=== PATIENT | female | born 1965 | race Caucasian/White ===

== ENCOUNTER 2020-07-17 10:45 | Outpatient (CLI) | payer OTHER ==
[2020-07-17 16:05] LABS: THYROID STIMULATING HORMONE 6.15 uIU/mL (0.34-5.60)
[2020-07-17 16:07] LABS: FREE T4 (FREE THYROXINE) 0.66 ng/dL (0.58-1.64)
== END 2020-07-17 10:46 | disposition home or self-care (01) ==
LOC: LAB.S 10:45
PROVIDERS: ATTEND Registered Nurse
DX: R79.89 Other specified abnormal findings of blood chemistry (principal); E03.9 Hypothyroidism, unspecified
CPT/HCPCS: 36415; 82565; 84439; 84443

== ENCOUNTER 2020-09-22 13:47 | Outpatient (CLI) | payer OTHER ==
[2020-09-22 20:29] LABS: THYROID STIMULATING HORMONE 0.89 uIU/mL (0.34-5.60)
[2020-09-22 20:31] LABS: FREE T4 (FREE THYROXINE) 0.71 ng/dL (0.58-1.64)
== END 2020-09-22 13:48 | disposition home or self-care (01) ==
LOC: LAB.S 13:47
PROVIDERS: ATTEND Registered Nurse
DX: E03.9 Hypothyroidism, unspecified (principal)
CPT/HCPCS: 36415; 84439; 84443

== ENCOUNTER 2020-12-29 16:01 | Outpatient (CLI) | payer OTHER ==
[2020-12-29 20:14] LABS: THYROID STIMULATING HORMONE 0.9 uIU/mL (0.34-5.60)
[2020-12-29 20:16] LABS: FREE T3 3.69 pg/mL (2.5-3.9); FREE T4 (FREE THYROXINE) 0.75 ng/dL (0.58-1.64)
== END 2020-12-29 16:02 | disposition home or self-care (01) ==
LOC: LAB.S 16:01
PROVIDERS: ATTEND Registered Nurse
DX: E03.9 Hypothyroidism, unspecified (principal)
CPT/HCPCS: 36415; 84439; 84443; 84481

== ENCOUNTER 2021-07-27 13:56 | Outpatient (CLI) | payer OTHER ==
[2021-07-27 20:12] LABS: BASOPHILS % (AUTO) 0.8 %; EOSINOPHILS # (AUTO) 0.1 10^3/uL (0.0-0.7); EOSINOPHILS % (AUTO) 1.2 %; HCT - HEMATOCRIT 40.2 % (37.0-47.0); HGB - HEMOGLOBIN 12.5 g/dL (12.0-16.0); LYMPHOCYTES # (AUTO) 1.4 10^3/uL (1.5-3.5); LYMPHOCYTES % (AUTO) 28.7 %; MEAN CORPUSCULAR HEMOGLOBIN 27.8 pg (27.0-31.0); MEAN CORPUSCULAR HGB CONC 31.1 g/dL (32.0-36.0); MEAN CORPUSCULAR VOLUME 89.5 fL (81.0-99.0); MEAN PLATELET VOLUME 10.6 fL (7.9-10.8); MONOCYTES # (AUTO) 0.3 10^3/uL (0.0-1.0); MONOCYTES % (AUTO) 5.8 %; NEUTROPHILS # (AUTO) 3.1 10^3/uL (1.5-6.6); NEUTROPHILS % (AUTO) 63.5 %; PLT - PLATELET COUNT 190 10^3/uL (130-450); RED BLOOD COUNT 4.49 10^6/uL (4.20-5.40); RED CELL DISTRIBUTION WIDTH 14.4 % (12.0-15.0); WHITE BLOOD COUNT 4.8 x10^3/uL (4.8-10.8)
[2021-07-27 20:24] LABS: ALBUMIN 4.2 g/dL (3.2-5.5); ALBUMIN/GLOBULIN RATIO 1.5 (1.0-2.2); BILIRUBIN,TOTAL 0.6 mg/dL (0.2-1.0); CALCIUM 9.4 mg/dL (8.5-10.3); CREATININE 1.2 mg/dL (0.4-1.0); CRP - C-REACTIVE PROTEIN 1.1 mg/dL (0-1.0); POTASSIUM 4.2 mmol/L (3.5-5.0)
[2021-07-27 20:39] LABS: THYROID STIMULATING HORMONE 5.06 uIU/mL (0.34-5.60)
[2021-07-27 20:41] LABS: FREE T3 3.55 pg/mL (2.5-3.9); FREE T4 (FREE THYROXINE) 0.54 ng/dL (0.58-1.64)
== END 2021-07-27 13:57 | disposition home or self-care (01) ==
LOC: LAB.S 13:56
PROVIDERS: ATTEND Registered Nurse
DX: Z12.11 Encounter for screening for malignant neoplasm of colon (principal); M25.50 Pain in unspecified joint; E03.9 Hypothyroidism, unspecified; N18.31 Chronic kidney disease, stage 3a
CPT/HCPCS: 36415; 80053; 84439; 84443; 84481; 85025; 85651; 86140

== ENCOUNTER 2021-11-16 14:10 | Outpatient (CLI) | payer OTHER ==
[2021-11-16 21:31] LABS: THYROID STIMULATING HORMONE 1.1 uIU/mL (0.34-5.60)
[2021-11-16 21:33] LABS: FREE T4 (FREE THYROXINE) 0.72 ng/dL (0.58-1.64)
== END 2021-11-16 14:11 | disposition home or self-care (01) ==
LOC: LAB.S 14:10
PROVIDERS: ATTEND Registered Nurse
DX: E03.9 Hypothyroidism, unspecified (principal)
CPT/HCPCS: 36415; 84439; 84443

== ENCOUNTER 2021-12-14 12:58 | Outpatient (CLI) | payer OTHER ==
--- NOTE | 2021-12-15 09:36 | Mammography Report ---
BILATERAL DIGITAL SCREENING MAMMOGRAM 3D/2D WITH EXAGGERATED CC: 12/14/2021 CLINICAL: Routine screening. Comparison is made to exams dated: 01/29/2010 mammogram and 10/24/2008 mammogram - [facility]. There are scattered fibroglandular elements in both breasts. No significant masses, calcifications, or other findings are seen in either breast. There has been no significant interval change. IMPRESSION: NEGATIVE There is no mammographic evidence of malignancy. A 1 year screening mammogram is recommended. This exam was interpreted at Station ID: [id number]. NOTE: For mammograms, a report in lay terms will be sent to the patient. Approximately 15% of breast malignancies will not be visualized mammographically. In the management of a palpable breast mass, a negative mammogram must not discourage biopsy of a clinically suspicious lesion. Electronically Signed By: Francois Pringle M.D., jr/geovanny:12/14/2021 13:52:24 ACR BI-RADS Category 1: Negative 3341F PARENCHYMAL PATTERN: (A) - The breast(s) demonstrate(s) scattered fibroglandular densities. BI-RADS CATEGORY: (1) - 1 RECOMMENDATION: (ANNUAL) - Recommend routine annual screening mammography. [id number] 1 year screening LATERALITY: (B)
== END 2021-12-14 12:59 | disposition home or self-care (01) ==
LOC: DI.S 12:58
PROVIDERS: ATTEND Registered Nurse
DX: Z12.31 Encounter for screening mammogram for malignant neoplasm of breast (principal)

== ENCOUNTER 2023-04-21 12:25 | Outpatient (CLI) | payer OTHER ==
[2023-04-21 20:15] LABS: ALBUMIN 4.2 g/dL (3.2-5.5); ALBUMIN/GLOBULIN RATIO 1.3 (1.0-2.2); BILIRUBIN,TOTAL 0.8 mg/dL (0.2-1.0); CALCIUM 9.3 mg/dL (8.5-10.3); CREATININE 1.2 mg/dL (0.4-1.0); POTASSIUM 4.6 mmol/L (3.5-5.0); TOTAL PROTEIN 7.4 g/dL (6.7-8.2)
[2023-04-21 20:28] LABS: THYROID STIMULATING HORMONE 3.41 uIU/mL (0.34-5.60)
[2023-04-21 20:30] LABS: FREE T3 3.04 pg/mL (2.5-3.9)
[2023-04-21 20:31] LABS: FREE T4 (FREE THYROXINE) 0.65 ng/dL (0.58-1.64)
[2023-04-23 04:08] LABS: HCV AB Non Reactive (Non Reactive)
== END 2023-04-21 12:26 | disposition home or self-care (01) ==
LOC: LAB.S 12:25
PROVIDERS: ATTEND Registered Nurse
DX: E03.9 Hypothyroidism, unspecified (principal); Z11.59 Encounter for screening for other viral diseases; N18.30 Chronic kidney disease, stage 3 unspecified
CPT/HCPCS: 36415; 80053; 84439; 84443; 84481; 86803

== ENCOUNTER 2023-05-12 10:38 | Outpatient (CLI) | payer OTHER ==
--- NOTE | 2023-05-13 11:10 | Mammography Report ---
BILATERAL DIGITAL DIAGNOSTIC MAMMOGRAM 3D/2D: 05/12/2023 CLINICAL: Palpable right breast lump. Due for bilateral. Comparison is made to exams dated: 12/14/2021 mammogram, 01/29/2010 mammogram, and 10/24/2008 mammogram - [facility]. There are scattered areas of fibroglandular density in both breasts (category b / 25%-50% glandular t issue). No significant masses, calcifications, or other findings are seen in either breast. IMPRESSION: INCOMPLETE: NEEDS ADDITIONAL IMAGING EVALUATION There is no abnormality seen in the right breast to correspond with the area of clinical concern, how ever, ultrasound is recommended. Based on the Tyrer Cuzick model (a risk assessment model) the patients lifetime risk is 8.5% and her 10 year risk is 3.3%. According to the ACR, ACS, and NCCN guidelines, an annual breast MRI exam elva g with mammogram is recommended if the patients lifetime risk is 20% or greater. This exam was interpreted at Station ID: [id number]. NOTE: For mammograms, a report in lay terms will be sent to the patient. Approximately 15% of breast malignancies will not be visualized mammographically. In the management of a palpable breast mass, a negative mammogram must not discourage biopsy of a clinically suspicious lesion. Electronically Signed By: Flo Mueller M.D. lc/:05/12/2023 13:00:38 ACR BI-RADS Category 0: Incomplete 3340F PARENCHYMAL PATTERN: (A) - The breast(s) demonstrate(s) scattered fibroglandular densities. BI-RADS CATEGORY: (0) - 0 Ultrasound [id number] Immediate follow-up LATERALITY: (B)
--- NOTE | 2023-05-13 11:10 | Ultrasound Report ---
LIMITED ULTRASOUND OF RIGHT BREAST: 05/12/2023 CLINICAL: Palpable right breast lump. Comparison is made to exams dated: 05/12/2023 mammogram, 12/14/2021 mammogram, 01/29/2010 mammogram, and 10/24/2008 mammogram - [facility]. Color flow ultrasound of the right breast 10 o'clock region was performed. Garcia scale images of the real-time examination were reviewed. Area of shadowing seen in the right breast 10:00 9cm from nipple at site of palpable abnormality. IMPRESSION: PROBABLY BENIGN There is no abnormality seen in the right breast to correspond with the area of clinical concern, how ever, clinical correlation and clinical followup are recommended. The area of shadowing is favored to represent artifact from dense breast tissue. No measurable mass. Contralateral images appear similar. A follow-up ultrasound in 6 months is recommended to demonstrate stability. This exam was interpreted at Station ID: [id number]. Electronically Signed By: Flo Mueller M.D. lc/:05/12/2023 13:03:17 Ultrasound BI-RADS: 3 Probably benign BI-RADS CATEGORY: (3) - 3 Ultrasound [id number] 6 month follow-up LATERALITY: (B)
== END 2023-05-12 10:39 | disposition home or self-care (01) ==
LOC: DI 10:38
PROVIDERS: ATTEND Registered Nurse
DX: N63.11 Unspecified lump in the right breast, upper outer quadrant (principal)

== ENCOUNTER 2023-12-26 12:22 | Outpatient (CLI) | payer MEDICAID ==
--- NOTE | 2024-01-02 08:35 | Ultrasound Report ---
LIMITED ULTRASOUND OF RIGHT BREAST: 12/30/2023 CLINICAL: Palpable right breast lump. Comparison is made to exams dated: 05/12/2023 ultrasound, 05/12/2023 mammogram, 12/14/2021 mammogram, 01/29 mammogram, and 10/24/2008 mammogram - [facility]. Real-time ultrasound of the right breast 10 o'clock region was performed. Garcia scale images of the r eal-time examination were reviewed. No significant abnormalities were seen sonographically in the right breast. Per patient, there is no longer a palpable abnormality in this area. Normal dense breast tissue is seen. IMPRESSION: NEGATIVE No sonographic finding to correspond to the resolved palpable abnormality and no sonographic evidence of malignancy. Return to annual mammogram screening schedule is recommended. Findings and recommendations were conveyed to the patient at time of exam. This exam was interpreted at Station ID: [id number]. Electronically Signed By: Crystal morse/:12/30/2023 15:01:43 letter sent: No_Letter Ultrasound BI-RADS: 1 Negative BI-RADS CATEGORY: (1) - 1 Mammogram [id number] return to screening LATERALITY: (B)
== END 2023-12-26 12:23 | disposition home or self-care (01) ==
LOC: DI 12:22
PROVIDERS: ATTEND Registered Nurse
DX: R92.8 Other abnormal and inconclusive findings on diagnostic imaging of breast (principal)

== ENCOUNTER 2024-05-17 08:55 | Outpatient (CLI) | payer MEDICAID ==
[2024-05-17 09:05] LABS: BASOPHILS # (AUTO) 0.1 10^3/uL (0.0-0.1); EOSINOPHILS # (AUTO) 0.2 10^3/uL (0.0-0.7); EOSINOPHILS % (AUTO) 3.4 %; HCT - HEMATOCRIT 41.1 % (37.0-47.0); LYMPHOCYTES # (AUTO) 1.4 10^3/uL (1.5-3.5); LYMPHOCYTES % (AUTO) 29.1 %; MEAN CORPUSCULAR HEMOGLOBIN 28.3 pg (27.0-31.0); MEAN CORPUSCULAR HGB CONC 31.6 g/dL (32.0-36.0); MEAN CORPUSCULAR VOLUME 89.5 fL (81.0-99.0); MEAN PLATELET VOLUME 9.1 fL (7.9-10.8); MONOCYTES # (AUTO) 0.3 10^3/uL (0.0-1.0); MONOCYTES % (AUTO) 5.2 %; NEUTROPHILS # (AUTO) 2.9 10^3/uL (1.5-6.6); NEUTROPHILS % (AUTO) 61.1 %; PLT - PLATELET COUNT 165 10^3/uL (130-450); RED BLOOD COUNT 4.59 10^6/uL (4.20-5.40); RED CELL DISTRIBUTION WIDTH 13.8 % (12.0-15.0); WHITE BLOOD COUNT 4.8 x10^3/uL (4.8-10.8)
[2024-05-17 09:24] LABS: ALBUMIN 4.3 g/dL (3.2-5.5); ALBUMIN/GLOBULIN RATIO 1.7 (1.0-2.2); ALKALINE PHOSPHATASE 56 IU/L (42-121); ALT ALANINE AMINOTRANSFERASE 15 IU/L (10-60); AST ASPARTATE AMINOTRANSFERASE 18 IU/L (10-42); BILIRUBIN,TOTAL 0.3 mg/dL (0.2-1.0); BUN - BLOOD UREA NITROGEN 20 mg/dL (6-20); CALCIUM 9.4 mg/dL (8.5-10.3); CARBON DIOXIDE - CO2 29 mmol/L (21-32); CHLORIDE 107 mmol/L (101-111); CHOL/HDL RATIO 3.3 (<4.4); CHOLESTEROL 196 mg/dL; CREATININE 1.1 mg/dL (0.6-1.3); GFR - MDRD 51 (>89); GLUCOSE 95 mg/dL (74-104); HDL CHOLESTEROL 60 mg/dL; LDL CHOLESTEROL,CALCULATED 120 mg/dL; MAGNESIUM 1.7 mg/dL (1.7-2.3); POTASSIUM 4.7 mmol/L (3.5-4.5); SODIUM 139 mmol/L (135-145); TOTAL PROTEIN 6.9 g/dL (6.4-8.9); TRIGLYCERIDES 82 mg/dL; VLDL CHOLESTEROL 16 mg/dL
[2024-05-17 09:35] LABS: THYROID STIMULATING HORMONE 2.03 uIU/mL (0.34-5.60)
[2024-05-17 10:40] LABS: FECAL OCCULT BLOOD (FIT) NEGATIVE (NEGATIVE)
== END 2024-05-17 08:56 | disposition home or self-care (01) ==
LOC: LAB 08:55
PROVIDERS: ATTEND Physician Assistant
DX: Z00.00 Encounter for general adult medical examination without abnormal findings (principal); E03.9 Hypothyroidism, unspecified; R00.8 Other abnormalities of heart beat; Z12.11 Encounter for screening for malignant neoplasm of colon
CPT/HCPCS: 36415; 80050; 80061; 82274; 83721; 83735; 84439

== ENCOUNTER 2024-06-28 09:29 | Outpatient (CLI) | payer MEDICAID ==
[2024-06-28 09:58] LABS: CALCIUM 8.9 mg/dL (8.5-10.3); POTASSIUM 4.4 mmol/L (3.5-4.5)
== END 2024-06-28 09:30 | disposition home or self-care (01) ==
LOC: LAB 09:29
PROVIDERS: ATTEND Physician Assistant
DX: E87.5 Hyperkalemia (principal)
CPT/HCPCS: 36415; 80048